=== PATIENT | male | born 1975 | race Two or more races ===

== ENCOUNTER 2020-09-04 11:30 | Emergency (ER) | payer OTHER ==
[2020-09-04] MEDS ORDERED: SODIUM CHLORIDE 0.9% 500 ML IV ONE (11:45)
[2020-09-04] MEDS ORDERED: CLINDAMYCIN 600MG IV 50 ML IV ONE (11:45)
== END 2020-09-04 11:48 | disposition left against medical advice (07) ==
LOC: EEVIPCON 11:30 → EDUNIT# 11:30 → ER 11:30
DX: M79.672 Pain in left foot (principal); Z53.21 Procedure and treatment not carried out due to patient leaving prior to being seen by health care provider
CPT/HCPCS: 36415; 85025

== ENCOUNTER 2020-09-04 11:43 | Inpatient (IN) | payer OTHER ==
[~2020-09-04] VITALS: Ht 180.3 cm; Wt 90.7 kg
[2020-09-04] MEDS ORDERED: CLINDAMYCIN 600MG IV 50 ML IV ONE (12:00)
[2020-09-04 12:52] LABS: Anion Gap 6 (5-15); Blood Urea Nitrogen 12 mg/dL (7-18); Carbon Dioxide 24 mmol/L (21-32); Chloride 109 mmol/L (98-107); Glucose 102 mg/dL (74-106); Sodium 139 mmol/L (136-145)
[2020-09-04 12:53] LABS: Alanine Aminotransferase 35 U/L (16-61); Albumin 3.9 g/dL (3.4-5.0); Alkaline Phosphatase 80 U/L (45-117); Aspartate Aminotransferase 23 U/L (15-37); BUN/Creatinine Ratio 9.9; Bilirubin, Total 0.4 mg/dL (0.2-1.0); Calcium 8.7 mg/dL (8.5-10.1); GFR African American 84 mL/min; GFR Non-African American 69 mL/min; Neutrophils % (auto) 66.4 % (37.0-80.0); Total Protein 7.8 g/dL (6.4-8.2); White Blood Cell 7.1 10^3/uL (4.4-10.8)
[2020-09-04 12:54] LABS: Basophils # (auto) 0 10 ^3/uL (0-0.2); Basophils % (auto) 0.4 % (0.0-2.0); Eosinophils # (auto) 0.1 10 ^3/uL (0-0.8); Eosinophils % (auto) 1.8 % (0.0-7.0); Hematocrit 42.8 % (41.0-53.0); Hemoglobin 15.2 g/dL (13.5-17.5); Lymphocytes # (auto) 1.6 10 ^3/uL (0.4-5.4); Mean Corpuscular Volume 95.2 fL (80.0-100.0); Monocytes # (auto) 0.7 10 ^3/uL (0-1.3); Monocytes % (auto) 9.4 % (0.0-12.0); Neutrophils # (auto) 4.7 10 ^3/uL (1.6-8.6); Nucleated Red Blood Cells % 0.1 %
[2020-09-04 12:55] LABS: Mean Corpuscular Hemoglobin 33.7 pg (28.0-32.0); Mean Corpuscular Hgb Conc. 35.4 g/dL (32.0-36.0); Red Cell Distribution Width 13.2 % (11.8-14.3)
[2020-09-04] MEDS ORDERED: MORPHINE SULF INJ 2 MG/ML SYRINGE 1ML IV PRN (14:30)
[2020-09-04] MEDS ORDERED: NITROGLYCERIN 0.4 MG SL TAB SL PRN (14:30)
[2020-09-04] MEDS ORDERED: ONDANSETRON HCL 4 MG/2 ML VIAL IV PRN (14:30)
[2020-09-04] MEDS ORDERED: VANCOMYCIN PER PHARMACY 0 MG IV SCH (15:00)
[2020-09-04] MEDS: VANCOMYCIN 1GM/250ML 250 ML IV SCH (16:16)
[2020-09-04] MEDS: PIPERACILLIN-TAZOB 3.375GM 100 ML IV SCH ×2 (18:39→23:37)
[2020-09-04] MEDS: HYDROcodone-ACET 5/325MG TAB PO PRN (18:41)
[2020-09-04] MEDS: PANTOPRAZOLE 40 MG/10 ML VIAL INJ IV SCH (21:34)
[2020-09-04 23:41] VITALS: BP 134/117
[2020-09-05 00:26] VITALS: BP 134/47
[2020-09-05] MEDS: HYDROmorphone HCL 2 MG/ML VL IV PRN (03:47)
[2020-09-05] MEDS: VANCOMYCIN 1GM/250ML 250 ML IV SCH ×2 (03:54→15:32)
[2020-09-05 04:57] VITALS: BP 107/71
[2020-09-05 05:19] LABS: Basophils # (auto) 0 10 ^3/uL (0-0.2); Basophils % (auto) 0.6 % (0.0-2.0); Eosinophils # (auto) 0.1 10 ^3/uL (0-0.8); Hematocrit 43.1 % (41.0-53.0); Hemoglobin 15.1 g/dL (13.5-17.5); Lymphocytes # (auto) 1.4 10 ^3/uL (0.4-5.4); Lymphocytes % (auto) 22.5 % (10.0-50.0); Mean Corpuscular Hemoglobin 33.6 pg (28.0-32.0); Mean Corpuscular Hgb Conc. 35.2 g/dL (32.0-36.0); Mean Corpuscular Volume 95.5 fL (80.0-100.0); Monocytes # (auto) 0.6 10 ^3/uL (0-1.3); Monocytes % (auto) 9.8 % (0.0-12.0); Neutrophils # (auto) 4.2 10 ^3/uL (1.6-8.6); Neutrophils % (auto) 65.1 % (37.0-80.0); Nucleated Red Blood Cells % 0.1 %; Red Blood Cells 4.51 10^6/uL (4.5-5.90); Red Cell Distribution Width 12.7 % (11.8-14.3); White Blood Cell 6.4 10^3/uL (4.4-10.8)
[2020-09-05] MEDS: PIPERACILLIN-TAZOB 3.375GM 100 ML IV SCH ×3 (05:59→18:46)
[2020-09-05 09:00] VITALS: BP 115/66
[2020-09-05] MEDS: ENOXAPARIN SOD 40 MG/0.4 ML SYRINGE SC SCH (09:49)
[2020-09-05] MEDS: PANTOPRAZOLE 40 MG/10 ML VIAL INJ IV SCH ×2 (09:49→23:07)
[2020-09-05] MEDS ORDERED: VANCOMYCIN 1GM/250ML 250 ML IV SCH (10:00)
[2020-09-05 13:00] VITALS: BP 108/61
[2020-09-05 16:34] VITALS: BP 104/59
[2020-09-05 22:00] VITALS: BP 123/68
[2020-09-06] MEDS: PIPERACILLIN-TAZOB 3.375GM 100 ML IV SCH ×3 (01:23→11:31)
[2020-09-06 03:08] LABS: Basophils # (auto) 0 10 ^3/uL (0-0.2); Basophils % (auto) 0.8 % (0.0-2.0); Eosinophils # (auto) 0.1 10 ^3/uL (0-0.8); Eosinophils % (auto) 2.4 % (0.0-7.0); Hematocrit 45.5 % (41.0-53.0); Lymphocytes # (auto) 2.2 10 ^3/uL (0.4-5.4); Lymphocytes % (auto) 35.9 % (10.0-50.0); Mean Corpuscular Hemoglobin 33.6 pg (28.0-32.0); Mean Corpuscular Hgb Conc. 35.2 g/dL (32.0-36.0); Mean Corpuscular Volume 95.7 fL (80.0-100.0); Monocytes # (auto) 0.7 10 ^3/uL (0-1.3); Monocytes % (auto) 10.9 % (0.0-12.0); Neutrophils # (auto) 3.1 10 ^3/uL (1.6-8.6); Nucleated Red Blood Cells % 0.1 %; Red Blood Cells 4.75 10^6/uL (4.5-5.90); White Blood Cell 6.2 10^3/uL (4.4-10.8)
[2020-09-06] MEDS: VANCOMYCIN 1GM/250ML 250 ML IV SCH ×3 (04:16→23:50)
[2020-09-06 05:00] VITALS: BP 97/54
[2020-09-06] MEDS: HYDROmorphone HCL 2 MG/ML VL IV PRN (06:26)
[2020-09-06 09:00] VITALS: BP 101/58
[2020-09-06] MEDS: PANTOPRAZOLE 40 MG/10 ML VIAL INJ IV SCH ×2 (10:42→23:13)
[2020-09-06] MEDS: ENOXAPARIN SOD 40 MG/0.4 ML SYRINGE SC SCH (10:43)
[2020-09-06] MEDS ORDERED: NAPROXEN 500 MG TAB PO PRN ×2 (12:15→12:45)
[2020-09-06 13:00] VITALS: BP 113/65
[2020-09-06] MEDS: HYDROcodone-ACET 5/325MG TAB PO PRN ×2 (13:11→23:31)
[2020-09-06 17:00] VITALS: BP 107/68
[2020-09-06 22:00] VITALS: BP 100/65
[2020-09-07 05:00] VITALS: BP 92/60
[2020-09-07 08:00] VITALS: BP 100/61
[2020-09-07 09:03] LABS: Hemoglobin 16.2 g/dL (13.5-17.5); Lymphocytes # (auto) 1.8 10 ^3/uL (0.4-5.4); Nucleated Red Blood Cells % 0.1 %
[2020-09-07 09:05] LABS: Basophils # (auto) 0 10 ^3/uL (0-0.2); Basophils % (auto) 0.9 % (0.0-2.0); Eosinophils # (auto) 0.2 10 ^3/uL (0-0.8); Eosinophils % (auto) 4.3 % (0.0-7.0); Hematocrit 45.3 % (41.0-53.0); Lymphocytes % (auto) 37.6 % (10.0-50.0); Mean Corpuscular Hemoglobin 34.4 pg (28.0-32.0); Mean Corpuscular Hgb Conc. 35.8 g/dL (32.0-36.0); Mean Corpuscular Volume 96.1 fL (80.0-100.0); Monocytes # (auto) 0.5 10 ^3/uL (0-1.3); Monocytes % (auto) 9.7 % (0.0-12.0); Neutrophils # (auto) 2.2 10 ^3/uL (1.6-8.6); Neutrophils % (auto) 47.5 % (37.0-80.0); Red Blood Cells 4.71 10^6/uL (4.5-5.90); Red Cell Distribution Width 12.7 % (11.8-14.3); White Blood Cell 4.7 10^3/uL (4.4-10.8)
[2020-09-07] MEDS: VANCOMYCIN 1GM/250ML 250 ML IV SCH ×2 (10:55→20:59)
[2020-09-07] MEDS: PANTOPRAZOLE 40 MG/10 ML VIAL INJ IV SCH ×2 (10:55→21:00)
[2020-09-07] MEDS: ENOXAPARIN SOD 40 MG/0.4 ML SYRINGE SC SCH (10:55)
[2020-09-07 12:00] VITALS: BP 102/57
[2020-09-07 16:00] VITALS: BP 109/61
[2020-09-07] MEDS: HYDROcodone-ACET 5/325MG TAB PO PRN (20:58)
[2020-09-07 22:00] VITALS: BP 129/81
[2020-09-08 05:00] VITALS: BP 97/55
[2020-09-08] MEDS: ceFAZolin 1GM 2 GM in D5W 5% 100 ML IV SCH ×3 (07:23→14:52)
[2020-09-08 08:36] VITALS: BP 98/57
[2020-09-08] MEDS: ENOXAPARIN SOD 40 MG/0.4 ML SYRINGE SC SCH (09:30)
[2020-09-08] MEDS: PANTOPRAZOLE 40 MG/10 ML VIAL INJ IV SCH (09:30)
[2020-09-08 12:48] VITALS: BP 105/60
[2020-09-08 17:05] VITALS: BP 114/74
[2020-09-08] MEDS ORDERED: CIPR-173 PO (17:40)
[2020-09-08 18:57] VITALS: BP 114/74
== END 2020-09-08 20:36 | DRG 603 ==
LOC: ER 11:43 → OVERFLOW 14:21 → EEVIPCON 14:21 → CENTRAL 19:59
PROVIDERS: ADMIT Specialist; ATTEND Internal Medicine
DX: L03.116 Cellulitis of left lower limb (principal); T63.301A Toxic effect of unspecified spider venom, accidental (unintentional), initial encounter; I10 Essential (primary) hypertension; Z82.49 Family history of ischemic heart disease and other diseases of the circulatory system; B95.61 Methicillin susceptible Staphylococcus aureus infection as the cause of diseases classified elsewhere; Z20.822 Contact with and (suspected) exposure to COVID-19; Z90.49 Acquired absence of other specified parts of digestive tract
CPT/HCPCS: 36415; 73620; 73718; 80053; 80202; 82565; 85025; 85049; 85652; 87077; 87081; 87186; 87205; 87426; 96365; 96366; 96367; C9113; G0378; J0690; J2543; J3490; J7060